=== PATIENT | male | born 2000 ===

== ENCOUNTER 2022-12-28 23:45 | Emergency (ER) | payer BC ==
[2022-12-29] MEDS ORDERED: Ondansetron 4 MG Tab.DIS PO ONE (00:05)
[2022-12-29] MEDS ORDERED: Acetaminophen/HYDROcodone 325-5 MG Tab PO ONE (00:05)
[2022-12-29] MEDS ORDERED: Cefdinir 300 MG Cap PO ONE (00:05)
== END 2022-12-29 00:23 | disposition home or self-care (01) ==
LOC: MW.ED 23:45
DX: L60.0 Ingrowing nail (principal)
CPT/HCPCS: 99283; A9270